=== PATIENT | male | born 1965 | race Caucasian/White ===

== ENCOUNTER 2019-06-18 22:52 | Emergency (ER) | payer MEDICAID ==
[~2019-06-18] VITALS: Ht 157.5 cm; Wt 77.1 kg
[2019-06-18 23:01] VITALS: BP 130/79
--- NOTE | 2019-06-18 23:12 | NUR ---
PT AMBULATED TO BED
--- NOTE | 2019-06-18 23:13 | NUR ---
PT CAME TO ER C/O N/V/D. PT WENT TO [place] FOR 1 WEEK AND WAS HAVING DIARRHEA IN [place]. PT STATED "I CAME HOME YESTERDAY AND HAVE N/V/D AND GENERALIZED WEAKNESS. I THINK I AM DEHYDRATED." PT DENIES ANY PAIN, PAIN LEVEL 0/10. ABDOMEN IS TENDER TO TOUCH. NKA. MED HX: HIV, DM, HYPERLIPIDEMIA, AND HTN. SAFETY MEASURES IN PLACE. WAITING FOR ERMD TO EVALUATE PT.
[2019-06-18] MEDS ORDERED: ONDANSETRON 4 MG/2 ML VIAL IVP ONE (23:20)
[2019-06-18] MEDS ORDERED: NACL 0.9% 1,000 ML IV ONE (23:20)
[2019-06-18 23:41] LABS: BASOPHILS % (AUTO) 0.1 % (0.0-2.0); EOSINOPHILS % (AUTO) 0.1 % (0.0-4.0); HEMATOCRIT 41.8 % (36-52); HEMOGLOBIN 13.6 g/dL (12.0-18.0); LYMPHOCYTES # (AUTO) 0.8 K/uL (2.0-11.5); LYMPHOCYTES % (AUTO) 7.4 % (20.5-51.1); MEAN CORPUSCULAR HEMOGLOBIN 26 pg (27-31); MEAN CORPUSCULAR HGB CONC 33 g/dL (33-37); MEAN CORPUSCULAR VOLUME 78.8 fL (80-94); MONOCYTES # (AUTO) 1.5 K/uL (0.8-1.0); MONOCYTES % (AUTO) 13.2 % (1.7-9.3); PLATELET COUNT (AUTO) 338 K/uL (140-450); RED CELL DISTRIBUTION WIDTH 15.6 % (11.6-13.7); WHITE BLOOD COUNT (AUTO) 11.3 K/uL (4.8-10.8)
[2019-06-18 23:44] LABS: APPEARANCE,URINE CLEAR (CLEAR); BILIRUBIN,URINE NEGATIVE (NEGATIVE); BLOOD, URINE TRACE-L (NEGATIVE); COLOR,URINE YELLOW (YELLOW); LEUKOCYTE ESTERASE ,URINE NEGATIVE (NEGATIVE); NITRITE, URINE NEGATIVE (NEGATIVE); PH,URINE 5.5 (5.0-9.0); UGLUCOSE 3+ (NEGATIVE)
[2019-06-18 23:51] LABS: ANION GAP 21.7 (8-16); CARBON DIOXIDE 20.8 mmol/L (21-32); CREATININE 1.3 mg/dL (0.7-1.3); POTASSIUM 3.5 mmol/L (3.5-5.1)
--- NOTE | 2019-06-18 23:53 | NUR ---
PT FRIEND AT BEDSIDE
[2019-06-19] MEDS ORDERED: MORPHINE SULFATE 4 MG/ML SYR IVP ONE (00:05)
[2019-06-19] MEDS ORDERED: INSULIN REGULAR, HUMAN 100 UNIT/ML VIAL SUBQ ONE ×2 (00:05→01:05)
[2019-06-19 00:11] LABS: NEUTROPHILS % (AUTO) 79.2 % (42.2-75.2)
--- NOTE | 2019-06-19 00:15 | NUR ---
PT STATES "MY N/V/D WENT AWAY"
[2019-06-19 00:16] LABS: RBC,URINE 0-5 /HPF (0-5); WBC,URINE 0-5 /HPF (0-5); YEAST,URINE Few /HPF (None Seen)
[2019-06-19] MEDS ORDERED: LOPERAMIDE 2 MG CAP PO ONE (00:25)
[2019-06-19 00:34] LABS: ALBUMIN 3.9 g/dL (3.4-5.0); TOTAL BILIRUBIN 0.7 mg/dL (0.0-1.0)
[2019-06-19 01:15] LABS: BARBITURATE, URINE NEG. ng/ml (NEG <=200); BENZODIAZEPINE, URINE NEG. ng/mL (NEG <=200); CANNABINOID, URINE NEG. ng/mL (NEG <=50); COCAINE, URINE NEG. ng/mL (NEG <=300); OPIATE, URINE NEG. ng/mL (NEG <=2000); PHENCYCLIDINE SCREEN,URINE NEG. ng/mL (NEG <=25)
[2019-06-19 01:35] VITALS: BP 132/71
--- NOTE | 2019-06-19 01:35 | NUR ---
Patient discharged with v/s stable. Written and verbal after care instructions given and explained. Patient alert, oriented and verbalized understanding of instructions. Ambulatory with steady gait. All questions addressed prior to discharge. ID band removed. Patient advised to follow up with PMD. Rx of loperamide, zofran given. Patient educated on indication of medication including possible reaction and side effects. Opportunity to ask questions provided and answered.
== END 2019-06-19 01:35 | disposition home or self-care (01) ==
LOC: MED 22:52
DX: K52.9 Noninfective gastroenteritis and colitis, unspecified (principal); E11.65 Type 2 diabetes mellitus with hyperglycemia; I10 Essential (primary) hypertension; E78.5 Hyperlipidemia, unspecified
CPT/HCPCS: 36415; 80053; 80305; 81001; 83605; 83690; 85025; 87040; 87086; 93005; 96361; 96372; 96374; 99284; J1815; J2405; J7030; J2270

== ENCOUNTER 2023-10-03 20:50 | Emergency (ER) | payer MEDICAID ==
[~2023-10-03] VITALS: Ht 160 cm; Wt 75.7 kg
[2023-10-03 21:01] VITALS: BP 165/92; PULSE 107; RESP 18; TEMP 97.8; O2SAT 99
[2023-10-03] MEDS ORDERED: AMPICILLIN/SULBACTAM 3 GM VIAL IM ONE (22:45)
[2023-10-03] MEDS: KETOROLAC 30 MG/ML VIAL IVP ONE (22:45)
[2023-10-03 23:06] LABS: BASOPHILS % (AUTO) 0.2 % (0.0-2.0); EOSINOPHILS % (AUTO) 0.1 % (0.0-4.0); HEMATOCRIT 49.3 % (36-52); HEMOGLOBIN 16.7 g/dL (12.0-18.0); LYMPHOCYTES # (AUTO) 2.3 K/uL (2.0-11.5); MEAN CORPUSCULAR HEMOGLOBIN 29 pg (27-31); MEAN CORPUSCULAR HGB CONC 34 g/dL (33-37); MEAN CORPUSCULAR VOLUME 86.1 fL (80-94); MONOCYTES # (AUTO) 1.1 K/uL (0.8-1.0); MONOCYTES % (AUTO) 8.4 % (1.7-9.3); NEUTROPHILS # (AUTO) 9.8 K/uL (1.8-7.7); NEUTROPHILS % (AUTO) 74.3 % (42.2-75.2); PLATELET COUNT (AUTO) 313 K/uL (140-450); RED BLOOD CELL COUNT(AUTO) 5.73 MIL/uL (4.20-6.10); RED CELL DISTRIBUTION WIDTH 15.2 % (11.6-13.7); WHITE BLOOD COUNT (AUTO) 13.3 K/uL (4.8-10.8)
[2023-10-03 23:29] LABS: ANION GAP 13.8 (8-16); CALCIUM 9.8 mg/dL (8.5-10.1); CARBON DIOXIDE 28.2 mmol/L (21-32); CREATININE 1.1 mg/dL (0.6-1.3); TOTAL BILIRUBIN 0.6 mg/dL (0.0-1.0); TOTAL PROTEIN, SERUM 8.5 g/dL (6.4-8.2)
[2023-10-04] MEDS: AMPICILLIN/SULBACTAM 3 GM VIAL IV ONE (00:54)
[2023-10-04] MEDS: KETOROLAC 30 MG/ML VIAL IVP ONE (04:29)
[2023-10-04] MEDS ORDERED: PIPERACILLIN/TAZOBACTAM 4.5 GM VIAL IV ONE (04:34)
[2023-10-04] MEDS: metroNIDAZOLE 500 MG/NS PREMIX 100 ML IV ONE (05:11)
[2023-10-04] MEDS: PIPERACILLIN/TAZOBACTAM 4.5 GM in DEXTROSE 5% 100 ML IV ONE (05:12)
[2023-10-04] MEDS ORDERED: AMOX1TAB8 PO (06:22)
[2023-10-04] MEDS ORDERED: CLIN300C2 PO (06:22)
[2023-10-04 06:35] VITALS: BP 124/74; PULSE 85; RESP 18; TEMP 97.6; O2SAT 100
== END 2023-10-04 06:35 | disposition home or self-care (01) ==
LOC: MED 20:50
DX: K04.7 Periapical abscess without sinus (principal); E11.9 Type 2 diabetes mellitus without complications; Z79.2 Long term (current) use of antibiotics
CPT/HCPCS: 36415; 70487; 80053; 85025; 96365; 96367; 96368; 96375; 99285; J0295; J1885; J2543; J3490

== ENCOUNTER 2024-01-25 10:52 | Emergency (ER) | payer MEDICAID ==
[~2024-01-25] VITALS: Ht 154.9 cm; Wt 77.1 kg
[~2024-01-25 10:52] MED LIST: AMOX1TAB8 PO; CLIN300C2 PO
[2024-01-25 10:53] VITALS: BP 148/81; PULSE 98; RESP 20; TEMP 96.8; O2SAT 97
[2024-01-25 12:24] LABS: BASOPHILS % (AUTO) 0.3 % (0.0-2.0); EOSINOPHILS % (AUTO) 0.4 % (0.0-4.0); HEMATOCRIT 46.4 % (36-52); HEMOGLOBIN 15.5 g/dL (12.0-18.0); LYMPHOCYTES # (AUTO) 1.7 K/uL (2.0-11.5); LYMPHOCYTES % (AUTO) 21.3 % (20.5-51.1); MEAN CORPUSCULAR HEMOGLOBIN 29 pg (27-31); MEAN CORPUSCULAR HGB CONC 33 g/dL (33-37); MEAN CORPUSCULAR VOLUME 86.6 fL (80-94); MONOCYTES % (AUTO) 12.7 % (1.7-9.3); NEUTROPHILS # (AUTO) 5.2 K/uL (1.8-7.7); NEUTROPHILS % (AUTO) 65.3 % (42.2-75.2); PLATELET COUNT (AUTO) 251 K/uL (140-450); RED BLOOD CELL COUNT(AUTO) 5.35 MIL/uL (4.20-6.10); RED CELL DISTRIBUTION WIDTH 14.5 % (11.6-13.7); WHITE BLOOD COUNT (AUTO) 7.9 K/uL (4.8-10.8)
[2024-01-25 12:34] LABS: CALCIUM 9.2 mg/dL (8.5-10.1); CARBON DIOXIDE 25.6 mmol/L (21-32); CREATININE 1.3 mg/dL (0.6-1.3); POTASSIUM 3.6 mmol/L (3.5-5.1)
[2024-01-25 12:41] LABS: ALANINE AMINOTRANSFERASE 22 U/L (12-78); ALBUMIN 3.6 g/dL (3.4-5.0); ALKALINE PHOSPHATASE 68 U/L (50-136); ASPARTATE AMINOTRANSFERASE 20 U/L (15-37); BILIRUBIN,DIRECT 0.1 mg/dL (0.0-0.3); TOTAL BILIRUBIN 0.8 mg/dL (0.0-1.0); TOTAL PROTEIN, SERUM 8.1 g/dL (6.4-8.2)
[2024-01-25 12:53] LABS: INR 0.94 (0.8-1.2); PARTIAL THROMBOPLASTIN TIME 27.7 secs (22-35.6); PROTHROMBIN TIME 9.9 secs (10.8-13.4)
[2024-01-25] MEDS ORDERED: KETOROLAC 30 MG/ML VIAL IM ONE (13:20)
[2024-01-25] MEDS: KETOROLAC 30 MG/ML VIAL IVP ONE (13:51)
[2024-01-25] MEDS ORDERED: DOXY-690 PO (14:04)
[2024-01-25] MEDS ORDERED: AMOX1TAB8 PO (14:04)
[2024-01-25 14:35] VITALS: BP 126/85; PULSE 91; RESP 16; TEMP 98.9; O2SAT 96
== END 2024-01-25 14:35 | disposition home or self-care (01) ==
LOC: MED 10:52
DX: R07.9 Chest pain, unspecified (principal); J18.9 Pneumonia, unspecified organism; H53.2 Diplopia; E11.9 Type 2 diabetes mellitus without complications; I10 Essential (primary) hypertension; E78.5 Hyperlipidemia, unspecified; Z79.899 Other long term (current) drug therapy
CPT/HCPCS: 36415; 71045; 80048; 80076; 83880; 84484; 85025; 85379; 85610; 85730; 93005; 96374; 99285; J1885